=== PATIENT | female | born 1975 | race Caucasian/White ===

== ENCOUNTER 2019-04-19 13:05 | Emergency (ER) | payer OTHER | END 2019-04-19 15:10 | disposition home or self-care (01) | LOC: JERFT 13:05 ==

== ENCOUNTER 2020-06-28 19:57 | Emergency (ER) | payer OTHER ==
[2020-06-28 20:06] VITALS: BP 158/104; PULSE 80; TEMP 97.8; BMI 27.4
--- OUTSIDE RECORDS SUMMARY | 2020-06-28 20:25 | XMS ---
:1975 Author Organization [facility] Support Name Relationship Address Phone UE Unavailable Unavailable Unavailable ANTHONY MARTINEZ SON [address] [address] [place] [address] Re-disclosure Warning The records that you are about to access may contain information from federally- assisted alcohol or drug abuse programs. If such information is present, then the following federally mandated warning applies: This information has been disclosed to you from records protected by federal confidentiality rules (42 CFR part 2). The federal rules prohibit you from making any further disclosure of this information unless further disclosure is expressly permitted by the written consent of the person to whom it pertains or as otherwise permitted by 42 CFR part 2. A general authorization for the release of medical or other information is NOT sufficient for this purpose. The Federal rules restrict any use of the information to criminally investigate or prosecute any alcohol or drug abuse patient.The records that you are about to access may contain highly sensitive health information, the redisclosure of which is protected by Article 27-F of the [facility] Public Health law. If you continue you may haveaccess to information: Regarding HIV / AIDS; Provided by facilities licensed or operated by the [facility] Office of Mental Health; or Provided by the [facility] Office for People With Developmental Disabilities. If such information is present, then the following [facility] mandated warning applies: This information has been disclosed to you from confidential records which are protected by state law. State law prohibits you from making any further disclosure of this information without the specific written consent of the person to whom it pertains, or as otherwise permitted by law. Any unauthorized further disclosure in violation of state law may result in a fine or retirement sentence or both. A general authorization for the release of medical or other information is NOT sufficient authorization for further disclosure. Insurance Providers Payer name Policy type Policy ID Covered Covered alliance party's Policy P lyn / Coverage alliance party ID relationship to [employer] type [employer] MARY JO [id number] ESSENTIAL PLAN 3 4
--- NOTE | 2020-06-28 20:36 | PDOC ---
History of Present Illness - General Chief Complaint: Chest Pain Stated Complaint: CHEST PAIN Time Seen by Provider: 06/28/20 20:17 - History of Present Illness Initial Comments: HPI: 06/28/20 20:30 44 yo F PMH HTN, HLD, elevated blood sugar, X3, presenting with sternal chest pain. Hungarian speaking only. States that she has been having constant 8/10 sternal chest pain like "pressure", occasionally radiating into L shoulder, associated with occasional nausea without vomiting, KIMBALL without SOB, for the past two weeks. Has been worsening in intensity over the past 5 days, especially yesterday and today. Had a physical 1 month ago where she was diagnosed with HTN, HLD, and elevated blood sugar, but not started on med ications and told to try lifestyle modifications. Has been taking acetaminophen without relief. Had similar episode 4 months ago which resolved without issue. ROS: GENERAL/CONSTITUTIONAL: denies fever, chills, diaphoresis, generalized weaknes HEAD, EYES, EARS, NOSE AND THROAT: denies rhinorrhea, nasal congestion NEUROLOGIC: denies headache, dizziness, mental status changes CARDIOVASCULAR: endorses chest pain. Denies syncope, palpitations, lightheadedness RESPIRATORY: endorses dyspnea on exertion. Denies cough, shortness of breath GASTROINTESTINAL: endorses nausea without vomiting. Denies abdominal pain, abdominal distension, diarrhea, constipation GENITOURINARY: denies dysuria, frequency, urgency MUSCULOSKELETAL: denies myalgia, arthralgia, joint swelling, back pain, neck pain SKIN: denies rash, itching PE: Gen: well-developed, well-nourished, NAD Neuro: AAOX4, CN II-XII intact HEENT: atraumatic, normocephalic Neck: trachea midline, supple CV: regular rate, regular rhythm, no murmurs, rubs, or gallops Pulm: CTA b/l, no wheezing Abd: soft, non-distended, non-tender MSK: full ROM, intact pulses Extr: no edema, no deformities Skin: warm, dry MDM: Concern for angina v ACS v musculoskeletal. - CBC, CMP - EKG, trop - CXR - serum preg - potential toradol - reassess EKG normal sinus at 76 bpm, MO 144, QRS 92, QTc 411. No ST segment changes or T wave inversions. 06/28/20 22:36 Labs unconcerning. Will reassess, plan to dc for further outpatient management. 06/28/20 22:44 Patient's pain improved, feeling much better. Will dc for further outpatient management. Past History - Medical History Allergies/Adverse Reactions: Allergies Allergy/AdvReac Type Severity Reaction Status Date / Time No Known Allergies Allergy Verified 04/19/19 13:15 Home Medications: Ambulatory Orders Permethrin 5% Topical Cream [Elimite -] 1 applic TP ONCE #2 tube 04/19/19 Permethrin [Elimite] 60 gm TP WEEKLY 2 Days cream..g. 04/19/19 COPD: No - Reproductive History Is Patient Now?: No - Psycho-Social/Smoking History Smoking History: Never smoked Have you smoked in the past 12 months: No - Substance Abuse Hx (Audit-C & DAST Scrn) How often the patient has a drink containing alcohol: Never Score: In Men: 4 or > Positive; In Women: 3 or > Positive: 0 Screen Result (Pos requires Nsg. Audit-10AR): Negative *Physical Exam - Vital Signs Last Vital Signs Temp Pulse Resp BP Pulse Ox 97.8 F 80 20 158/104 H 99 06/28/20 20:03 06/28/20 20:03 06/28/20 20:03 06/28/20 20:03 06/28/20 20:03 Heart Score/ECG Review - History History: Slightly suspicious - Electrocardiogram EKG: Normal - Age Age: 45-65 - Risk Factors Risk Factors Heart Score: Yes Hx Hypercholesterolemia, Yes Hx Hypertension, Yes Hx Obesity Based on the list above the patient has:: >/=3 risk factors or Hx atheroscle rotic disease - Troponin Troponin: </= normal limit - Score Heart Score - Total: 3 ED Treatment Course - LABORATORY CBC & Chemistry Diagram: 06/28/20 21:00 06/28/20 21:00 - ADDITIONAL ORDERS Additional order review: Laboratory Results 06/28/20 06/28/20 21:00 21:00 Potassium 4.3 Chloride 107 Carbon Dioxide 27 BUN 10.5 Creatinine 0.8 Est GFR (CKD-EPI)AfAm 102.47 Est GFR (CKD-EPI)NonAf 88.41 Random Glucose 90 Calcium 9.0 Total Bilirubin 0.8 AST 27 Alkaline Phosphatase 88 Troponin I < 0.02 Total Protein 7.3 Albumin 3.7 Serum , Qual Negative 06/28/20 21:00 RBC 4.84 MCV 84.3 MCHC 33.1 RDW 14.6 MPV 10.2 Neutrophils % 72.0 Lymphocytes % 19.4 Monocytes % 7.2 Eosinophils % 0.9 Basophils % 0.5 - RADIOLOGY Radiology Studies Ordered: Category Date Time Status CHEST PA & LAT [RAD] Stat Radiology 06/28/20 20:18 Taken - Medications Given in the ED: ED Medications Discontinued Medications Generic Name Dose Route Start Last Admin Trade Name Domingoq PRN Reason Stop Dose Admin Lidocaine 1 patch 06/28/20 20:55 06/28/20 21:37 Lidoderm Patch - TP 06/28/20 20:56 1 patch ONCE ONE Administration Discharge - Discharge Information Problems reviewed: Yes Clinical Impression/Diagnosis: Chest pain Qualifiers: Chest pain type: unspecified Qualified Code(s): R07.9 - Chest pain, unspecified Condition: Improved Disposition: HOME - Follow up/Referral - Patient Discharge Instructions Patient Printed Discharge Instructions: DI for Atypical Chest Pain Additional Instructions: You were seen with chest pain. This improved with pain medication. Your labs are unconcerning. Please follow up with your primary care doctor within one week. Alternate taking ibuprofen and acetaminophen every 6 hours as needed. Return to the ER if you develop new or worsening symptoms. - Post Discharge Activity
--- NOTE | 2020-06-28 20:38 | PDOC ---
Attending Attestation - Resident Resident Name: Sophie Bazan - ED Attending Attestation I have performed the following: I have examined & evaluated the patient, The case was reviewed & discussed with the resident, I agree w/resident's findings & plan - HPI HPI: 06/28/20 20:36 44 yo F PMH HTN, HLD, elevated blood sugar, X3, presenting with sternal chest pain. Mohawk speaking only. States that she has been having constant 8/10 sternal chest pain like "pressure", occasionally radiating into L shoulder, associated with occasional nausea without vomiting, KIMBALL without SOB, for the past two weeks. Has been worsening in intensity over the past 5 days, especially yesterday and today. Had a physical 1 month ago where she was diagnosed with HTN, HLD, and elevated blood sugar, but not started on medications and told to try lifestyle modifications. Has been taking acetaminophen without relief. Had similar episode 4 months ago which resolved without issue. 06/28/20 20:43 - Physicial Exam PE: 06/28/20 20:36 Agree with the resident's HPI and PE as documented in the electronic medical record. NAD, well appearing, EOMI, PERRL, nl conjunctiva, anicteric; neck supple. lungs clear, RRR, left upper thoracic back TTP, anterior/substernal chest wall TTP. abdomen soft nontender. no rebound, guarding. Back nontender. MAX x4, no focal neuro deficits. speech clear. no calf tenderness. No peripheral edema. normal color for ethnicity, WWP. 06/28/20 20:59 - Medical Decision Making 06/28/20 20:36 Vital Signs Temp Pulse Resp BP Pulse Ox 97.8 F 80 20 158/104 H 99 06/28/20 20:03 06/28/20 20:03 06/28/20 20:03 06/28/20 20:03 06/28/20 20:03 vitals reviewed, mildly hypertensive normal sats, normal heart rate no systemic features does have reproducible back and substernal/anterior CP. no trauma. DDx chest pain: ACS, coronary vasospasm, NSTEMI, arrhythmia, unstable angina, PE, dissection, PUD, esophageal spasm, GERD, gastritis, costochondritis, pneumonia, pleurisy, pericarditis/myocarditis. dehydration, electrolyte/metabolic derangements. Considered but clinically doubt based on HPI and PE: Low suspicion for pulmonary embolism or dissection. Interpreted by ED Physician: CXR (2 view): no acute abnormality: no infiltrates, bones appear intact and structures normal alignment, cardiac silhouette within normal limits. no free air under diaphragm, no pneumothorax. EKG normal sinus rhythm at 76 bpm, no interval abnormalities, narrow QRS, ST and T wave segments and morphology normal. Nonspecific T wave abnormality in III only, no prior Chest pain HEART score 3 which denotes Low risk and probability for ACS, less than 1.7% risk for MACE at 4-6 wks Given risk factors including comorbidities, gender, and clinical sx. labs and lytes wnl, neg trop, reassuring, so unlikely cardiac No evidence of ACS, pericarditis, myocarditis, pulmonary embolism, pneumothorax, pneumonia, Zoster, or esophageal perforation. Historically not abrupt in onset, tearing or ripping, pulses symmetric, no evidence of aortic dissection. given analgesia here with toradol, lido patch for her back, reassess feels clinically improved, most likely msk in nature, separate chest/back reproducible pain. Pt to be discharged in stable condition. Patient and family made aware of clinical impression, treatment recommendations and disposition plan, return precautions discussed (including but not limited to new or persistent/worsening symptoms, pain, fevers, or signs of infection, chest pain, respiratory distress, inability to tolerate oral intake, dehydration, syncope, or neurologic changes). Follow up with PMD as recommended, follow up information provided, take medications as instructed for duration of time. continue with supportive care, avoid triggers and precipitants. All questions answered to patient's satisfaction and expressed understanding and comfort with this. At the time of discharge, the patient is alert, clinically improved, tolerating po and verbalizes understanding of instructions, satisfied with the care received and felt comfortable with the plan. Patient does not suffer from an acute life-threatening medical condition at this time and is safe for outpatient follow-up. 06/28/20 20:38 06/28/20 21:00 06/28/20 22:21 06/28/20 23:31 Heart Score/ECG Review - History History: Slightly suspicious - Electrocardiogram EKG: Normal - Age Age: 45-65 - Risk Factors Risk Factors Heart Score: Yes Hx Hypercholesterolemia, Yes Hx Hypertension, Yes Hx Obesity Based on the list above the patient has:: >/=3 risk factors or Hx atherosclerotic disease - Troponin Troponin: </= normal limit - Score Heart Score - Total: 3 #1 ECG reviewed & interpreted by me at: 20:15 General ECG Interpretation: Sinus Rhythm, Normal Rate, Normal Intervals Compared to previous ECG there are: Previous ECG unavail 06/28/20 20:38 EKG normal sinus rhythm at 76 bpm, no interval abnormalities, narrow QRS, ST and T wave segments and morphology normal. Nonspecific T wave abnormality in III only, unchanged from prior Discharge - Discharge Information Problems reviewed: Yes Clinical Impression/Diagnosis: Chest pain Qualifiers: Chest pain type: unspecified Qualified Code(s): R07.9 - Chest pain, unspecified Condition: Improved Disposition: HOME - Admission No - Follow up/Referral Referrals: [facility] [place] [facility] [Provider Group] [facility] [Provider Group] - Patient Discharge Instructions Patient Printed Discharge Instructions: DI for Atypical Chest Pain Additional Instructions: You were seen with chest pain. This improved with pain medication. Your labs are unconcerning. Please follow up with your primary care doctor within one week. Alternate taking ibuprofen and acetaminophen every 6 hours as needed. Return to the ER if you develop new or worsening symptoms. Print Language: COLOMBIAN - Post Discharge Activity
[2020-06-28] MEDS ORDERED: LIDOCAINE 5% TOPICAL PATCH TP ONE (20:55)
[2020-06-28 21:22] LABS: BASO % 0.5 % (0-2.0); EOS % 0.9 % (0-4.5); HEMATOCRIT 40.8 % (32.4-45.2); HEMOGLOBIN 13.5 GM/dL (10.7-15.3); LYMPH % 19.4 % (8-40); MCH 27.9 pg (25.7-33.7); MCHC 33.1 g/dl (32.0-36.0); MEAN CELL VOLUME 84.3 fl (80-96); MEAN PLT VOLUME 10.2 fl (7.5-11.1); MONO % 7.2 % (3.8-10.2); PLATELET COUNT 249 K/MM3 (134-434); RBC 4.84 M/mm3 (3.60-5.2); RDW 14.6 % (11.6-15.6); WHITE BLOOD COUNT 10.1 K/mm3 (4.0-10.0)
[2020-06-28] MEDS ORDERED: LIDOCAINE 5% TOPICAL PATCH ONE (21:30)
[2020-06-28] MEDS ORDERED: LIDOCAINE PATCH REMOVAL MC SCH (22:00)
[2020-06-28 22:02] LABS: CHLORIDE 107 mmol/L (98-107); POTASSIUM 4.3 mmol/L (3.5-5.1)
[2020-06-28 22:05] LABS: ALBUMIN 3.7 g/dl (3.4-5.0); BLOOD UREA NITROGEN 10.5 mg/dL (7-18); CO2 27 mmol/L (21-32); GLUCOSE,RANDOM 90 mg/dL (74-106)
[2020-06-28 22:08] LABS: CREATININE 0.8 mg/dL (0.55-1.3); SGOT/AST 27 U/L (15-37)
[2020-06-28 22:10] LABS: BILIRUBIN,TOTAL 0.8 mg/dL (0.2-1); TOT PROT 7.3 g/dl (6.4-8.2)
[2020-06-28 22:11] LABS: ALK PHOS 88 U/L (45-117)
[2020-06-28 22:48] LABS: ANION GAP 5 MMOL/L (8-16); SGPT/ALT 33 U/L (13-61); SODIUM 139 mmol/L (136-145)
--- NOTE | 2020-06-30 16:10 | EKG ---
Test Reason : Blood Pressure : / mmHG Vent. Rate : 076 BPM Atrial Rate : 076 BPM P-R Int : 144 ms QRS Dur : 092 ms QT Int : 366 ms P-R-T Axes : 019 028 026 degrees QTc Int : 411 ms NORMAL SINUS RHYTHM NORMAL ECG NO PREVIOUS ECGS AVAILABLE Confirmed by DOMINIK SULLIVAN MD ([id number]) on 06/30/2020 4:10:19 PM Referred By: Confirmed By:DOMINIK SULLIVAN MD
== END 2020-06-28 23:05 | disposition home or self-care (01) ==
LOC: JER 19:57
DX: R07.9 Chest pain, unspecified (principal)
CPT/HCPCS: 36415; 71046-TC-FY; 80053; 82550; 82553; 84484; 84703; 85025; 93005; 93010; 99285-25

== ENCOUNTER 2023-09-15 08:56 | Emergency (ER) | payer OTHER ==
[2023-09-15 09:08] VITALS: BP 171/65; PULSE 79; RESP 17; TEMP 97.8; BMI 26.6
[2023-09-15] MEDS ORDERED: IBUPROFEN 600 MG TABLET (FP) PO ONE ×2 (10:38→11:09)
[2023-09-15] MEDS ORDERED: ACETAMINOPHEN 500 MG TABLET (FP) PO ONE (10:38)
[2023-09-15] MEDS ORDERED: CYCLOBENZAPRINE HCL 10 MG TABLET (FP) PO ONE (10:38)
[2023-09-15] MEDS ORDERED: LIDOCAINE 4% PATCH TP ONE ×2 (10:38→11:09)
[2023-09-15] MEDS ORDERED: CYCLOBENZAPRINE HCL 10 MG TABLET (FP) ONE (11:09)
[2023-09-15] MEDS ORDERED: ACETAMINOPHEN 500 MG TABLET (FP) ONE (11:09)
[2023-09-15] MEDS ORDERED: LIDOCAINE PATCH REMOVAL MC SCH (22:00)
== END 2023-09-15 12:35 | disposition home or self-care (01) ==
LOC: JERFT 08:56
DX: M54.50 Low back pain, unspecified (principal); M54.6 Pain in thoracic spine; M54.2 Cervicalgia; M25.552 Pain in left hip; V49.40XA Driver injured in collision with unspecified motor vehicles in traffic accident, initial encounter; Y92.410 Unspecified street and highway as the place of occurrence of the external cause
CPT/HCPCS: 71046-TC-FY; 72170-TC-FY; 99284-25

== ENCOUNTER 2024-08-30 04:02 | Day surgery (SDC) | payer OTHER ==
[2024-08-29 11:35] VITALS: BMI 28.3
[2024-08-30] MEDS ORDERED: ACETAMINOPHEN 500 MG TABLET (FP) PO PRN (08:52)
[2024-08-30 15:10] VITALS: RESP 18
[2024-08-30] MEDS: LIDOCAINE HCL 1% PRESERVATIVE FREE - 30ML VIAL IJ ONE (15:37)
[2024-08-30] MEDS: IOHEXOL 180 MG/1 ML ML IJ ONE (15:48)
[2024-08-30] MEDS: DEXAMETHASONE SOD PHOSPHATE 10 MG/1 ML VIAL IM ONE (15:49)
[2024-08-30 16:45] VITALS: BP 123/84; PULSE 68; TEMP 97.8
== END 2024-08-30 16:07 | disposition home or self-care (01) ==
LOC: JASU-SURG 04:02
PROVIDERS: ATTEND Pain Medicine Pain Medicine
PROC: 3E0R3BZ Introduction of Anesthetic Agent into Spinal Canal, Percutaneous Approach (ICD-10-PCS; 2024-08-30)
PROC: 3E0R33Z Introduction of Anti-inflammatory into Spinal Canal, Percutaneous Approach (ICD-10-PCS; principal; 2024-08-30 14:15)
DX: M54.16 Radiculopathy, lumbar region (principal)
CPT/HCPCS: 76000-TC-FY; J1100

== ENCOUNTER 2025-01-07 08:03 | Day surgery (SDC) | payer OTHER ==
[2025-01-03 14:55] VITALS: BMI 27.9
[2025-01-07] MEDS ORDERED: BUPIVACAINE HCL/EPINEPHRINE/PF 30 ML VIAL IJ ONE (08:58)
[2025-01-07] MEDS ORDERED: ONDANSETRON 4 MG/2 ML VIAL ONE (11:42)
[2025-01-07] MEDS ORDERED: FENTANYL CITRATE/PF 50 MCG/ML VIAL ONE (11:42)
[2025-01-07] MEDS ORDERED: ACETAMINOPHEN INJECTION 100 ML ONE (11:42)
[2025-01-07] MEDS: ONDANSETRON 4 MG/2 ML VIAL IVPUSH PRN (11:55)
[2025-01-07] MEDS: ACETAMINOPHEN 1000 MG/100 ML BAG IVPB ONE (12:00)
[2025-01-07 12:19] VITALS: RESP 16
[2025-01-07] MEDS ORDERED: oxyCODONE HCL 5 MG TABLET PO PRN (12:22)
[2025-01-07] MEDS ORDERED: LACTATED RINGERS SOLUTION 1,000 ML IV SCH (12:30)
[2025-01-07 12:49] VITALS: TEMP 97.8
[2025-01-07] MEDS: oxyCODONE HCL 5 MG TABLET PO ONE (12:50)
[2025-01-07] MEDS ORDERED: oxyCODONE HCL 5 MG TABLET ONE (12:50)
[2025-01-07 14:00] VITALS: BP 132/82; PULSE 66
== END 2025-01-07 14:00 | disposition home or self-care (01) ==
LOC: FASU 08:03
PROVIDERS: ATTEND Orthopaedic Surgery
PROC: 0SBC0ZZ Excision of Right Knee Joint, Open Approach (ICD-10-PCS; 2025-01-07)
PROC: 0SBC4ZZ Excision of Right Knee Joint, Percutaneous Endoscopic Approach (ICD-10-PCS; principal; 2025-01-07 10:28)
PROC: 0SBC4ZZ Excision of Right Knee Joint, Percutaneous Endoscopic Approach (ICD-10-PCS; 2025-01-07 10:28)
DX: S83.281A Other tear of lateral meniscus, current injury, right knee, initial encounter (principal); M65.161 Other infective (teno)synovitis, right knee; M22.41 Chondromalacia patellae, right knee; M67.461 Ganglion, right knee; X58.XXXA Exposure to other specified factors, initial encounter; Y93.9 Activity, unspecified; Y92.9 Unspecified place or not applicable
CPT/HCPCS: 82010; 82962; 88304-TC; 94760; J0131